=== PATIENT | female | born 1955 | race Caucasian/White ===

== ENCOUNTER 2021-01-31 07:00 | Day surgery (SDC) | payer MEDICARE, BC ==
[~2021-01-31] VITALS: Ht 167.6 cm; Wt 46.3 kg
[2021-01-31] VITALS (7 sets, daily range): BP systolic 106–137; BP diastolic 60–83
[2021-01-31] MEDS ORDERED: cefazolin/dext.iso 2gm/100ml 100 ML IV ONE (07:40)
[2021-01-31] MEDS ORDERED: LIDOcaine 1% W/epiNEPHrine 1:100,000 20ml vial ONE (09:03)
[2021-01-31] MEDS ORDERED: fentaNYL/PF 50MCG/1 ML 2ML syringe ONE (09:03)
[2021-01-31] MEDS ORDERED: ceFAZolin 1000mg inj ONE (09:03)
[2021-01-31] MEDS ORDERED: midazolam 1 mg/ML 2ml injection ONE (09:03)
[2021-01-31] MEDS ORDERED: HYDROcodone/acetaminophen 5mg/325mg tablet PO PRN (11:45)
[2021-01-31] MEDS ORDERED: HYDROcodone/acetaminophen 10/325mg tab PO PRN (11:45)
[2021-01-31] MEDS ORDERED: vancomycin/NS 1 GM ADD-VANTAGE 250 ML X 1 DOSE IV ONE ×2 (11:45→13:30)
[2021-01-31] MEDS ORDERED: ROSU5TAB12 PO (12:22)
[2021-01-31] MEDS ORDERED: MAGN400C PO (12:52)
[2021-01-31] MEDS ORDERED: GLUC100017 PO (12:52)
[2021-01-31] MEDS ORDERED: CALCIUM PO (12:52)
[2021-01-31] MEDS ORDERED: UBID100C16 PO (12:52)
[2021-01-31] MEDS ORDERED: TUMERIC PO (12:52)
[2021-01-31] MEDS ORDERED: CHOL100046 PO (12:52)
[2021-01-31] MEDS ORDERED: MECO10005 PO (12:52)
== END 2021-01-31 17:45 | disposition home or self-care (01) ==
LOC: SSTAY O 07:00
PROVIDERS: ATTEND Internal Medicine Cardiovascular Disease
DX: I49.5 Sick sinus syndrome (principal); I47.1 Supraventricular tachycardia; I08.1 Rheumatic disorders of both mitral and tricuspid valves; I27.20 Pulmonary hypertension, unspecified; E78.5 Hyperlipidemia, unspecified; M19.90 Unspecified osteoarthritis, unspecified site; Z79.899 Other long term (current) drug therapy; Z98.818 Other dental procedure status; Z88.8 Allergy status to other drugs, medicaments and biological substances; Z82.49 Family history of ischemic heart disease and other diseases of the circulatory system
CPT/HCPCS: 33208; 71046; 93005; 99152; 99153; C1785; C1894; C1898; J0690; J2250; J3010; J3370; A4565; A4620; A6449